=== PATIENT | male | born 1990 | race Caucasian/White ===

== ENCOUNTER → 2021-08-27 | Outpatient (CLI) | payer OTHER ==
--- NOTE | 2021-08-29 15:32 | SLEEPHOME ---
DATE: 08/27/2021 ORDERED BY: GINA Calle [facility] home sleep testing was performed due to concern for the obstructive sleep apnea syndrome in this patient with hypersomnia. For testing, a [employer] T3 respiratory monitoring device was used. Continuous record was made of pulse, oxygen saturation, air flow, chest and abdominal strain, and body position. Nine hours and 59 minutes of data were reviewed. There were 7 hours and 17 minutes marked as time in bed. During the interval marked time in bed, there were 174 respiratory events identified of 10 seconds in duration or greater for a respiratory event index of 23.9. The events were primarily obstructive. Baseline pulse rate was 71. Pulse rate ranged 51 to 153. Baseline saturation was 90%. Saturations fell to 78% and testing was performed in both the supine and nonsupine positions. IMPRESSION: Abnormal home sleep testing with repetitive respiratory events and oxygen desaturations to 78% with a respiratory event index of 23.9 is consistent with the obstructive sleep apnea syndrome. RECOMMENDATION: The patient should be encouraged to undergo a formal sleep evaluation.
== END ==
LOC: M SLEEP HO 10:01
PROVIDERS: ATTEND Nurse Practitioner Family
DX: G47.10 Hypersomnia, unspecified (principal)

== ENCOUNTER 2022-05-03 18:28 | Emergency (ER) | payer OTHER ==
[~2022-05-03] VITALS: Ht 170.2 cm; Wt 99.9 kg
[2022-05-03 18:33] VITALS: BP 141/87
== END 2022-05-03 18:54 | disposition left against medical advice (07) ==
LOC: M ED 18:28
DX: Z53.29 Procedure and treatment not carried out because of patient's decision for other reasons (principal)

== ENCOUNTER → 2023-09-12 | Outpatient (CLI) | payer OTHER | LOC: M SLEEP 20:00 | PROVIDERS: ATTEND Physician Assistant | DX: G47.33 Obstructive sleep apnea (adult) (pediatric) (principal) ==

== ENCOUNTER → 2024-07-17 | Outpatient (CLI) | payer OTHER | LOC: M SLEEP 20:00 | PROVIDERS: ATTEND Physician Assistant | DX: G47.33 Obstructive sleep apnea (adult) (pediatric) (principal) ==

== ENCOUNTER → 2025-06-22 | Outpatient (REF) | payer OTHER | LOC: M SFHCLERA 14:00 | PROVIDERS: ATTEND Internal Medicine | DX: Z53.9 Procedure and treatment not carried out, unspecified reason (principal) ==

== ENCOUNTER → 2025-08-04 | Outpatient (CLI) | payer OTHER | LOC: M CLY 13:44 | PROVIDERS: ATTEND Physician Assistant | DX: Z53.9 Procedure and treatment not carried out, unspecified reason (principal) ==